=== PATIENT | female | born 1990 | race Caucasian/White ===

== ENCOUNTER 2017-05-30 17:29 | Emergency (ER) | payer OTHER ==
[2017-05-30 17:50] VITALS: BP 125/83; PULSE 90; RESP 18; TEMP 98.7; O2SAT 97
[2017-05-30 18:06] LABS: APPEARANCE,URINE Clear; BILIRUBIN,URINE NEGATIVE (NEGATIVE); COLOR,URINE Yellow; GLUCOSE, URINE (UA) NEGATIVE (NEGATIVE); KETONES,URINE NEGATIVE (NEGATIVE); LEUKOCYTE ESTERASE ,URINE NEGATIVE (NEGATIVE); NITRATE,URINE NEGATIVE (NEGATIVE); OCCULT BLOOD,URINE NEGATIVE (NEG-TRACE); PH,URINE 5.5; UROBILINOGEN,URINE 0.2 (0.2-1.0 EU)
[2017-05-30 18:15] LABS: RBC,URINE 0-1 (0-3AV/HPF); WBC,URINE 0-1 (0-5AV/HPF)
== END 2017-05-30 19:17 | disposition home or self-care (01) ==
LOC: ED 17:29
DX: O26.891 Other specified pregnancy related conditions, first trimester (principal); R10.30 Lower abdominal pain, unspecified; Z3A.08 8 weeks gestation of pregnancy
CPT/HCPCS: 81001; 99282

== ENCOUNTER 2017-11-28 21:15 | Emergency (ER) | payer OTHER ==
[2017-11-28 21:46] VITALS: RESP 24; TEMP 97.7
[2017-11-29 00:23] VITALS: BP 134/84; PULSE 79; O2SAT 94
== END 2017-11-28 23:20 | disposition home or self-care (01) ==
LOC: ED 21:15
DX: O47.03 False labor before 37 completed weeks of gestation, third trimester (principal); Z3A.33 33 weeks gestation of pregnancy
CPT/HCPCS: 59025; 84112; 87210; 99283; 99284

== ENCOUNTER 2018-01-09 10:30 | Observation (INO) | payer OTHER ==
[2018-01-09 10:50] VITALS: RESP 16; O2SAT 98
[2018-01-09 13:58] VITALS: BP 141/88; PULSE 85
[2018-01-09 13:59] VITALS: TEMP 96.9
== END 2018-01-09 13:40 | disposition home or self-care (01) ==
LOC: OB 10:30
PROVIDERS: ADMIT Family Medicine; ATTEND Family Medicine
DX: Z34.93 Encounter for supervision of normal pregnancy, unspecified, third trimester (principal); Z3A.39 39 weeks gestation of pregnancy

== ENCOUNTER 2018-01-09 19:49 | Inpatient (IN) | payer OTHER ==
[2018-01-09] MEDS ORDERED: AMPICILLIN 1 GM PDS 2 GM in SODIUM CHLORIDE 0.9% 100 ML 100 ML IV SCH (20:15)
[2018-01-09] MEDS: SODIUM CHLORIDE 0.9% FLUSH 10 ML SOL IV SCH (20:15)
[2018-01-09] MEDS ORDERED: AMPICILLIN 1 GM PDS ONE (20:18)
[2018-01-09] MEDS ORDERED: DIPHENHYDRAMINE 50 MG/ML SOL IV PRN (20:20)
[2018-01-09] MEDS ORDERED: OXYTOCIN 10000 MU/ML SOL IM PRN (20:20)
[2018-01-09] MEDS ORDERED: SODIUM CHLORIDE 0.9% FLUSH 10 ML SOL IV PRN (20:20)
[2018-01-09] MEDS ORDERED: LACTATED RINGERS 1,000 ML IV PRN (20:20)
[2018-01-09] MEDS ORDERED: CARBOPROST 250 MCG/ML SOL IM PRN (20:20)
[2018-01-09] MEDS ORDERED: METHYLERGONOVINE MALEATE 0.2 MG/ML SOL IM PRN (20:20)
[2018-01-09] MEDS ORDERED: EPHEDRINE SULFATE 50 MG/ML SOL IV PRN (20:20)
[2018-01-09] MEDS ORDERED: NALOXONE HYDROCHLORIDE 0.4 MG/ML SOL IV PRN (20:20)
[2018-01-09] MEDS ORDERED: NALBUPHINE HCL 20 MG/ML SOL IV PRN (20:20)
[2018-01-09] MEDS ORDERED: FENTANYL 100MCG/2ML SOL IV PRN (20:20)
[2018-01-09] MEDS ORDERED: MEPIVACAINE HCL 1% MPF 30 ML SOL INFIL PRN (20:20)
[2018-01-09] MEDS: LACTATED RINGERS 1,000 ML IV SCH ×3 (20:30→21:10)
[2018-01-09 20:53] LABS: BASOPHILS % (AUTO) 1 % (0-3); EOSINOPHILS % (AUTO) 0 % (0-9); HEMATOCRIT 37 % (35-47); HEMOGLOBIN 12.9 gm/dl (12.0-15.5); LYMPHOCYTES % (AUTO) 9.97 % (10-50); MEAN CORPUSCULAR HEMOGLOBIN 30.5 pg (27.0-32.0); MEAN CORPUSCULAR HGB CONC 34.6 gm/dl (32.0-36.0); MEAN CORPUSCULAR VOLUME 88 fL (81-99); MONOCYTES % (AUTO) 3.9 % (0-12); NEUTROPHILS % (AUTO) 85.5 % (37-80)
[2018-01-09] MEDS ORDERED: MORPHINE SULFATE 0.5 MG/ML SOL ONE (21:18)
[2018-01-10] MEDS ORDERED: BISACODYL 10 MG SUP PR PRN (00:14)
[2018-01-10] MEDS ORDERED: APAP/HYDROCODONE 325/5 TAB PO PRN (00:14)
[2018-01-10] MEDS ORDERED: TEMAZEPAM 15MG 15 MG CAP PO PRN (00:14)
[2018-01-10] MEDS ORDERED: WITCH HAZEL 1 EA PAD TOP PRN (00:14)
[2018-01-10] MEDS ORDERED: FLEET ENEMA PR PRN (00:14)
[2018-01-10] MEDS ORDERED: METHYLERGONOVINE MALEATE 0.2 MG TAB PO PRN (00:14)
[2018-01-10] MEDS ORDERED: BENZOCAINE/MENTHOL 1 SPR TOP PRN (00:14)
[2018-01-10] MEDS ORDERED: ONDANSETRON HCL 4 MG/2 ML SOL IV PRN (00:22)
[2018-01-10] MEDS: AMPICILLIN 1 GM PDS 1 GM in SODIUM CHLORIDE 0.9% 100 ML 100 ML IV SCH ×2 (04:00)
[2018-01-10] MEDS: SODIUM CHLORIDE 0.9% FLUSH 10 ML SOL IV SCH ×3 (04:30→16:55)
[2018-01-10] MEDS: LACTATED RINGERS 1,000 ML IV SCH (04:30)
[2018-01-10] MEDS: DOCUSATE SODIUM 100 MG SGL PO SCH ×2 (08:57→21:25)
[2018-01-10] MEDS: IBUPROFEN 600 MG TAB PO PRN (15:55)
[2018-01-11] MEDS: IBUPROFEN 600 MG TAB PO PRN (08:22)
[2018-01-11] MEDS: DOCUSATE SODIUM 100 MG SGL PO SCH (08:22)
[2018-01-11 09:07] VITALS: BP 122/80; PULSE 88; RESP 16; TEMP 98; O2SAT 98
== END 2018-01-11 11:45 | disposition home or self-care (01) | DRG 560 ==
LOC: OB 19:49 → OBSVTOIN 19:49
PROVIDERS: ADMIT Family Medicine; ATTEND Family Medicine
PROC: 10E0XZZ Delivery of Products of Conception, External Approach (ICD-10-PCS; principal; 2018-01-09)
PROC: 0KQM0ZZ Repair Perineum Muscle, Open Approach (ICD-10-PCS; 2018-01-09)
DX: O80 Encounter for full-term uncomplicated delivery (principal); Z37.0 Single live birth; Z3A.39 39 weeks gestation of pregnancy
CPT/HCPCS: 36415; 59025; 85018; 85025; J0290; J2274; J2405; J2590; J3010; A9270-GY

== ENCOUNTER 2018-02-15 15:47 | Emergency (ER) | payer OTHER ==
[2018-02-15 16:25] VITALS: RESP 20; O2SAT 99
[2018-02-15 16:54] LABS: APPEARANCE,URINE Clear; BILIRUBIN,URINE NEGATIVE (NEGATIVE); COLOR,URINE Yellow; GLUCOSE, URINE (UA) NEGATIVE (NEGATIVE); KETONES,URINE NEGATIVE (NEGATIVE); LEUKOCYTE ESTERASE ,URINE NEGATIVE (NEGATIVE); NITRATE,URINE NEGATIVE (NEGATIVE); OCCULT BLOOD,URINE NEGATIVE (NEG-TRACE); UROBILINOGEN,URINE 0.2 (0.2-1.0 EU)
[2018-02-15 17:06] LABS: RBC,URINE 0-2 (0-3AV/HPF); WBC,URINE 0-2 (0-5AV/HPF)
[2018-02-15 17:28] LABS: AMPHETAMINES NEGATIVE (NEGATIVE); METHADONE NEGATIVE (NEGATIVE); OPIATES(OP13) NEGATIVE (NEGATIVE); OXYCODONE(OXY) NEGATIVE (NEGATIVE); PROPOXYPHENE(PPX) NEGATIVE (NEGATIVE); TRICYCLIC ANTIDEPRESSANTS NEGATIVE (NEGATIVE)
[2018-02-15 17:50] LABS: HEMATOCRIT 40 % (35-47); MEAN CORPUSCULAR HGB CONC 34.1 gm/dl (32.0-36.0); MEAN CORPUSCULAR VOLUME 90 fL (81-99)
[2018-02-15 18:07] LABS: ALBUMIN 3.6 gm/dl (3.4-5.0); ALT 34 IU/L (14-63); CALCIUM 8.8 mg/dl (8.5-10.1); GLOM FILT RATE 76 mL/min (>60); POTASSIUM 3.9 mMol/L (3.5-5.1); SODIUM 142 mMol/L (136-145)
[2018-02-15 18:18] VITALS: BP 123/78; PULSE 60; TEMP 98.2
[2018-02-15 18:20] LABS: BASOPHILS % (MANUAL) 0 % (0-3); EOSINOPHILS % (MANUAL) 5 % (0-9); LYMPHOCYTES % (MANUAL) 32 % (10-50); NORMAL RBCS PRESENT
[2018-02-15] MEDS ORDERED: LIDOCAINE HCL 2% (VISCOUS) 20 ML SOL PO ONE (18:40)
[2018-02-15] MEDS ORDERED: ALUMINUM/MAGNESIUM 30 ML SUS PO ONE (18:40)
[2018-02-15] MEDS ORDERED: LIDOCAINE HCL 2% (VISCOUS) 20 ML SOL ONE (18:42)
[2018-02-15] MEDS ORDERED: ALUMINUM/MAGNESIUM 30 ML SUS ONE (18:42)
[2018-02-15] MEDS ORDERED: AZITHROMYCIN 250 MG TAB PO ONE (19:17)
[2018-02-15] MEDS ORDERED: AZITHROMYCIN 250 MG TAB ONE (19:20)
== END 2018-02-15 19:26 | disposition home or self-care (01) ==
LOC: ED 15:47
DX: R07.0 Pain in throat (principal); R69 Illness, unspecified
CPT/HCPCS: 36415; 71046; 80053; 80305; 81001; 84484; 85007; 85027; 85378; 93005; 99282; 99283; A9270-GY

== ENCOUNTER 2018-07-18 13:31 | Emergency (ER) | payer OTHER ==
[2018-07-18 13:32] VITALS: O2SAT 99
[2018-07-18] MEDS ORDERED: LIDOCAINE HCL 1% MPF 30 SOL ONE (13:56)
[2018-07-18] MEDS ORDERED: TDAP VACCINE 0.5 ML SUS IM ONE (13:59)
[2018-07-18 14:36] VITALS: BP 117/59; PULSE 74; RESP 18; TEMP 97.8
== END 2018-07-18 14:31 | disposition home or self-care (01) ==
LOC: ED 13:31
DX: S81.811A Laceration without foreign body, right lower leg, initial encounter (principal); W45.8XXA Other foreign body or object entering through skin, initial encounter
CPT/HCPCS: 12002; 99283; J2001

== ENCOUNTER 2019-07-04 04:05 | Emergency (ER) | payer OTHER | END 2019-07-04 08:44 | disposition home or self-care (01) | LOC: ED 04:05 ==